=== PATIENT | female | born 1990 | race Hispanic/Latino ===

== ENCOUNTER 2017-08-26 00:44 | Emergency (ER) | payer OTHER ==
[2017-08-26 00:51] VITALS: RESP 18
--- NOTE | 2017-08-26 01:56 | C.PDOC ---
History Of Present Illness 27 y/o female presents with pain to right ear x 1 day, thought it was cerumen impaction. Used peroxide with no improvement. Time Seen by Provider: 08/26/17 01:40 Chief Complaint (Nursing): ENT Problem History Per: Patient History/Exam Limitations: None Onset/Duration Of Symptoms: Days (x1) Current Symptoms Are (Timing): Still Present Past Medical History Reviewed: Historical Data, Nursing Documentation, Vital Signs Vital Signs: Last Vital Signs Temp 98 F 08/26/17 02:19 Pulse 62 08/26/17 02:19 Resp 18 08/26/17 02:19 BP 113/74 08/26/17 02:19 Pulse Ox 100 08/26/17 03:35 - Medical History PMH: Anemia Surgical History: No Surg Hx Family History: States: No Known Family Hx - Social History Hx Alcohol Use: No Hx Substance Use: No Review Of Systems Constitutional: Negative for: Fever, Chills ENT: Positive for: Ear Pain (right) Physical Exam - Physical Exam Appears: Non-toxic, No Acute Distress, Other (umcomfortable) Skin: Warm, Dry, No Rash Head: Atraumatic, Normacephalic Eye(s): bilateral: PERRL, EOMI Ear(s): Left: Normal, Right: Other (canal is erythematous, cerumen obscuring view, partially visualized right TM appears erythematous) Oral Mucosa: Moist Neck: Supple Neurological/Psych: Oriented x3, Normal Speech ED Course And Treatment O2 Sat by Pulse Oximetry: 100 (RA) Pulse Ox Interpretation: Normal Medical Decision Making Medical Decision Making: Impression: 27 y/o female with otitis media Patient counseled regarding diagnosis and advised to discontinue peroxide/q-tip use. Will d/c home with antibiotics. ENT referral provided and patient instructed to f/u for persistent or worsening symptoms Disposition Counseled Patient/Family Regarding: Diagnosis, Need For Followup, Rx Given - Disposition Referrals: Jonah Yañez MD [Staff Provider] - Disposition: HOME/ ROUTINE Disposition Time: 02:10 Condition: GOOD Additional Instructions: Please take antibiotics as prescribed, Tylenol or Motrin for pain. Follow up with your doctor or with Dr Yañez (ENT) by the end of the week. Please do not use any more peroxide or put any other substances or qtips in to ears. Prescriptions: Acetaminophen [Tylenol 325mg tab] 650 mg PO Q6 #30 tab Amoxicillin [Amoxil 500 mg Cap] 500 mg PO TID #21 cap Instructions: Ear Infections (Otitis Media) (DC), Outer Ear Infection (DC) Forms: [facility] ([place]ani), General Discharge Instructions - POA Present On Arrival: None - Clinical Impression Clinical Impression: Otitis media, Otitis externa of right ear
[2017-08-26 02:19] VITALS: BP 113/74; PULSE 62; TEMP 98
[2017-08-26 03:26] VITALS: O2SAT 100
== END 2017-08-26 02:20 | disposition home or self-care (01) ==
LOC: C.ER 00:44
DX: H66.91 Otitis media, unspecified, right ear (principal); H60.91 Unspecified otitis externa, right ear